=== PATIENT | female | born 1970 | race Caucasian/White ===

== ENCOUNTER → 2017-01-22 | Outpatient (CLI) | payer MEDICARE, OTHER ==
[~2017-01-22] MED LIST: Flexeril PO; Medrol Dosepak PO; NOHOMEMEDS; Phenergan PO; Vicodin,Norco 5/325 PO
== END | disposition home or self-care (01) ==
DX: R13.10 Dysphagia, unspecified (principal); J38.5 Laryngeal spasm; K21.9 Gastro-esophageal reflux disease without esophagitis
CPT/HCPCS: 92611 GN